=== PATIENT | female | born 1995 | race African-American/Black ===

== ENCOUNTER 2019-05-26 10:49 | Emergency (ER) | payer SELFPAY ==
[~2019-05-26] VITALS: Ht 165.1 cm; Wt 78.0 kg
[~2019-05-26 10:49] MED LIST: CYCL10TA7 PO; IBUP-1561 PO
[2019-05-26 10:55] VITALS: BP 117/64; PULSE 69; RESP 18; Ht 165.1 cm; Wt 78.0 kg
[2019-05-26] MEDS ORDERED: KETOROLAC 30 MG INJ IM STA (12:28)
== END 2019-05-26 13:31 | disposition home or self-care (01) ==
LOC: FTE 10:49
DX: M62.830 Muscle spasm of back (principal); F17.210 Nicotine dependence, cigarettes, uncomplicated
CPT/HCPCS: 81003; 81025; 96372; 99284; J1885